=== PATIENT | male | born 1995 | race Caucasian/White ===

== ENCOUNTER 2020-05-26 16:22 | Emergency (ER) | payer BC ==
[~2020-05-26] VITALS: Ht 170.2 cm; Wt 87.5 kg
[2020-05-26 16:34] VITALS: Ht 170.2 cm; Wt 87.5 kg
[2020-05-26 17:48] VITALS: BP 127/80
== END 2020-05-26 17:48 | disposition home or self-care (01) ==
LOC: ED 16:22
DX: M79.641 Pain in right hand (principal); M79.642 Pain in left hand; R22.31 Localized swelling, mass and lump, right upper limb; R22.32 Localized swelling, mass and lump, left upper limb; F17.210 Nicotine dependence, cigarettes, uncomplicated; L29.9 Pruritus, unspecified; L53.9 Erythematous condition, unspecified